=== PATIENT | female | born 1985 | race Caucasian/White ===

== ENCOUNTER 2018-12-23 14:24 | Emergency (ER) | payer OTHER ==
[~2018-12-23] VITALS: Ht 165.1 cm; Wt 51.3 kg
[2018-12-23 14:59] LABS: BASOPHILS ABSOLUTE AUTO 0.02 K/mm3 (0.00-0.23); BASOPHILS PERCENT AUTO 0 % (0-2); EOSINOPHILS PERCENT AUTO 0 % (0-6); Hemoglobin 13.8 g/dL (11.5-16.0); IMMATURE GRAN ABSOLUTE AUTO 0.13 K/mm3 (0.00-0.10); IMMATURE GRAN PERCENT AUTO 1 % (0-1); LYMPHOCYTES ABSOLUTE AUTO 1.88 K/mm3 (0.84-5.20); LYMPHOCYTES PERCENT AUTO 11 % (21-46); MONOCYTES ABSOLUTE AUTO 1.63 K/mm3 (0.16-1.47); MONOCYTES PERCENT AUTO 9 % (4-13); Mean Corpuscular HGB 32.3 pg (26.0-34.0); Mean Corpuscular HGB Conc 34.5 g/dL (31.5-36.5); Mean Corpuscular Volume 94 fL (80-100); Mean Platelet Volume 10.5 fL (9.1-12.4); NEUTROPHILS ABSOLUTE AUTO 14.09 K/mm3 (1.96-9.15); NEUTROPHILS PERCENT AUTO 79 % (41-73); Platelet Count 195 K/mm3 (150-400); RDW Coefficient Variation 12.3 % (11.7-14.2); RDW Standard Deviation 42.6 fL (35.1-46.3); Red Blood Cell Count 4.27 M/mm3 (3.80-5.20); White Blood Cell Count 17.75 K/mm3 (4.00-11.30)
[2018-12-23 15:20] LABS: Alanine Aminotransfer (ALT/SGP 31 U/L (12-78); Albumin, Blood 3.8 g/dL (3.4-5.0); Alk Phos 45 U/L (50-136); Anion Gap 5 mmol/L (6-16); Aspartate Aminotrans (AST/SGOT 25 U/L (12-37); Bilirubin, Total 1.6 mg/dL (0.1-1.0); Blood Urea Nitrogen 10 mg/dL (8-24); CO2, Blood 26 mmol/L (21-32); Calcium, Blood 8.7 mg/dL (8.5-10.1); Chloride, Blood 108 mmol/L (98-108); Creatinine, Blood 0.63 mg/dL (0.40-1.00); Globulin, Blood 3.9 g/dL (2.2-4.0); Glomerular Filtration Rate >60 (60-); Glucose, Blood 103 mg/dL (70-99); Potassium, Blood 3.6 mmol/L (3.5-5.5); Sodium, Blood 139 mmol/L (136-145); Total Protein, Blood 7.7 g/dL (6.4-8.2)
[2018-12-23 15:51] LABS: Source, Urine Clean Catch
[2018-12-23 16:02] LABS: Bilirubin, Urine Neg (Neg); Blood, Urine Neg (Neg); Glucose Qualitative, Urine Neg (Neg); Ketones, Urine 1+ (Neg); Leukocyte Esterase, Urine 1+ (Neg); Nitrite, Urine Neg (Neg); Protein, Urine Neg (Neg); Urobilinogen, Urine NORM (Normal)
[2018-12-23 16:15] LABS: Appearance, Urine Hazy (Clear); Color, Urine Yellow (P-Yellow)
[2018-12-23 16:16] LABS: Bacteria Few /hpf; Red Blood Cells, Urine 0-2 /hpf (0-2); Squamous Epithelial Cells Few /hpf (Few)
[2018-12-23] MEDS ORDERED: Zithromax250 MG PO (18:05)
[2018-12-23] MEDS ORDERED: BENZ100A PO (18:05)
== END 2018-12-23 18:20 | disposition home or self-care (01) ==
LOC: ER 14:24
PROVIDERS: Physician Assistant
DX: J18.9 Pneumonia, unspecified organism (principal)
CPT/HCPCS: 71046; 80053; 81001; 85025; 87086; 99283-25; A9270

== ENCOUNTER 2020-07-23 08:32 | Day surgery (SDC) | payer BC, OTHER ==
[~2020-07-23] VITALS: Ht 167.6 cm; Wt 53.7 kg
[~2020-07-23 08:32] MED LIST: BENZ100A PO; Zithromax250 MG PO
--- NOTE | 2020-07-23 09:57 | NUR ---
07/23/20 0957 Jenniffer Beck LATE ENTRY: PT ARRIVES IN PREOP AND VS ARE DONE IT IS NOTED THAT HR IS IRREGULAR. 3-LEAD IS PREFORMED AND REPORTED TO DR CADENA. DR CADENA ORDERS 12 LEAD AND THAT IS DONE, GIVEN TO DR CADENA, NO FURTHER ORDERS.
== END 2020-07-23 11:41 | disposition home or self-care (01) ==
LOC: ORSCSDS 08:32
PROVIDERS: Obstetrics & Gynecology
PROC: 0UBC7ZX Excision of Cervix, Via Natural or Artificial Opening, Diagnostic (ICD-10-PCS; principal; 2020-07-23 09:45)
DX: D06.0 Carcinoma in situ of endocervix (principal); F17.210 Nicotine dependence, cigarettes, uncomplicated
CPT/HCPCS: 93005; 93010; A9270; J0171; J0690; J1100; J1885; J2250; J2405; J2704; J2765; J3010; J7120

== ENCOUNTER 2020-09-10 09:19 | Day surgery (SDC) | payer BC, OTHER ==
[~2020-09-10] VITALS: Ht 167.6 cm; Wt 54.1 kg
[~2020-09-10 09:19] MED LIST changes: +IBU800 M1 PO
--- NOTE | 2020-09-10 12:39 | NUR ---
09/10/20 1239 Brandon Brian 0.15ML OF EPI 1MG/ML ADDED TO 30ML OF BUPIVICAINE 0.5% TO CREATE A LOCAL OF BUPIVICAINE 0.5% WITH EPI 1:200,000.
== END 2020-09-10 13:29 | disposition home or self-care (01) ==
LOC: ORSCSDS 09:19
PROVIDERS: Obstetrics & Gynecology
PROC: 0UBC7ZX Excision of Cervix, Via Natural or Artificial Opening, Diagnostic (ICD-10-PCS; principal; 2020-09-10 10:30)
DX: D06.0 Carcinoma in situ of endocervix (principal); F17.210 Nicotine dependence, cigarettes, uncomplicated
CPT/HCPCS: 88305; J0171; J0690; J1100; J1885; J2250; J2405; J2704; J3010; J7120

== ENCOUNTER 2020-09-23 15:34 | Emergency (ER) | payer BC, OTHER ==
[~2020-09-23] VITALS: Ht 167.6 cm; Wt 53.5 kg
[2020-09-23 16:10] LABS: BASOPHILS ABSOLUTE AUTO 0.02 K/mm3 (0.00-0.23); BASOPHILS PERCENT AUTO 0 % (0-2); EOSINOPHILS ABSOLUTE AUTO 0.01 K/mm3 (0.00-0.68); EOSINOPHILS PERCENT AUTO 0 % (0-6); Hematocrit 39.6 % (33.0-51.0); Hemoglobin 13.3 g/dL (11.5-16.0); IMMATURE GRAN ABSOLUTE AUTO 0.03 K/mm3 (0.00-0.10); IMMATURE GRAN PERCENT AUTO 0 % (0-1); LYMPHOCYTES ABSOLUTE AUTO 2.28 K/mm3 (0.84-5.20); LYMPHOCYTES PERCENT AUTO 25 % (21-46); MONOCYTES ABSOLUTE AUTO 0.51 K/mm3 (0.16-1.47); MONOCYTES PERCENT AUTO 6 % (4-13); Mean Corpuscular HGB 32.5 pg (26.0-34.0); Mean Corpuscular HGB Conc 33.6 g/dL (31.5-36.5); Mean Corpuscular Volume 97 fL (80-100); Mean Platelet Volume 10.8 fL (9.1-12.4); NEUTROPHILS ABSOLUTE AUTO 6.47 K/mm3 (1.96-9.15); NEUTROPHILS PERCENT AUTO 69 % (41-73); Platelet Count 204 K/mm3 (150-400); RDW Coefficient Variation 11.6 % (11.7-14.2); RDW Standard Deviation 41.5 fL (35.1-46.3); Red Blood Cell Count 4.09 M/mm3 (3.80-5.20); White Blood Cell Count 9.32 K/mm3 (4.00-11.30)
[2020-09-23 16:20] LABS: Alanine Aminotransfer (ALT/SGP 17 U/L (12-78); Albumin, Blood 3.6 g/dL (3.4-5.0); Alk Phos 51 U/L (50-136); Anion Gap 8 mmol/L (6-16); Aspartate Aminotrans (AST/SGOT 15 U/L (12-37); Bilirubin, Total 0.7 mg/dL (0.1-1.0); Blood Urea Nitrogen 14 mg/dL (8-24); CO2, Blood 26 mmol/L (21-32); Calcium, Blood 8.5 mg/dL (8.5-10.1); Chloride, Blood 106 mmol/L (98-108); Creatinine, Blood 0.52 mg/dL (0.40-1.00); Globulin, Blood 3.5 g/dL (2.2-4.0); Glomerular Filtration Rate >60 (60-); Glucose, Blood 98 mg/dL (70-99); Potassium, Blood 3.3 mmol/L (3.5-5.5); Sodium, Blood 140 mmol/L (136-145); Total Protein, Blood 7.1 g/dL (6.4-8.2)
[2020-09-23 18:55] LABS: Source, Urine Clean Catch
[2020-09-23 18:57] LABS: Appearance, Urine Clear (Clear); Bilirubin, Urine Neg (Neg); Blood, Urine 5+ (Neg); Color, Urine Yellow (P-Yellow); Glucose Qualitative, Urine Neg (Neg); Ketones, Urine Neg (Neg); Leukocyte Esterase, Urine 3+ (Neg); Nitrite, Urine Neg (Neg); Protein, Urine Neg (Neg); Urobilinogen, Urine NORM (Normal)
[2020-09-23 19:56] LABS: White Blood Cells, Urine 25-50 /hpf (0-5)
[2020-09-23 19:57] LABS: Bacteria Rare /hpf; Squamous Epithelial Cells Many /hpf (Few)
[2020-09-23] MEDS ORDERED: CEFP200 PO (20:10)
[2020-09-23] MEDS ORDERED: Pyridium200 MG PO (20:10)
== END 2020-09-23 20:20 | disposition home or self-care (01) ==
LOC: ER 15:34
PROVIDERS: Emergency Medicine; Physician Assistant
DX: G89.18 Other acute postprocedural pain (principal); R10.30 Lower abdominal pain, unspecified; F17.200 Nicotine dependence, unspecified, uncomplicated
CPT/HCPCS: 36415; 80053; 81001; 84703; 85025; 87077; 87086; 87186; 99283

== ENCOUNTER 2022-01-19 12:59 | Emergency (ER) | payer OTHER ==
[~2022-01-19] VITALS: Ht 165.1 cm; Wt 54.4 kg
[~2022-01-19 12:59] MED LIST changes: +CEFP200 PO; +Pyridium200 MG PO
== END 2022-01-19 14:56 | disposition home or self-care (01) ==
LOC: ER 12:59
DX: S39.012A Strain of muscle, fascia and tendon of lower back, initial encounter (principal); S33.5XXA Sprain of ligaments of lumbar spine, initial encounter; F17.200 Nicotine dependence, unspecified, uncomplicated; X50.0XXA Overexertion from strenuous movement or load, initial encounter; Y99.0 Civilian activity done for income or pay
CPT/HCPCS: 96372; 99283; A9270; J1885

== ENCOUNTER 2023-07-08 13:33 | Emergency (ER) | payer OTHER ==
[~2023-07-08] VITALS: Ht 165.1 cm; Wt 76.2 kg
[~2023-07-08 13:33] MED LIST changes: +CEPH500 PO
[2023-07-08 14:09] LABS: BASOPHILS ABSOLUTE AUTO 0.03 K/mm3 (0.00-0.23); BASOPHILS PERCENT AUTO 0 % (0-2); EOSINOPHILS ABSOLUTE AUTO 0.04 K/mm3 (0.00-0.68); EOSINOPHILS PERCENT AUTO 0 % (0-6); Hematocrit 33.6 % (33.0-51.0); Hemoglobin 11.6 g/dL (11.5-16.0); IMMATURE GRAN ABSOLUTE AUTO 0.22 K/mm3 (0.00-0.10); IMMATURE GRAN PERCENT AUTO 2 % (0-1); LYMPHOCYTES ABSOLUTE AUTO 1.62 K/mm3 (0.84-5.20); LYMPHOCYTES PERCENT AUTO 15 % (21-46); MONOCYTES ABSOLUTE AUTO 0.78 K/mm3 (0.16-1.47); MONOCYTES PERCENT AUTO 7 % (4-13); Mean Corpuscular HGB Conc 34.5 g/dL (31.5-36.5); Mean Corpuscular Volume 93 fL (80-100); Mean Platelet Volume 10.3 fL (9.1-12.4); NEUTROPHILS ABSOLUTE AUTO 8.06 K/mm3 (1.96-9.15); NEUTROPHILS PERCENT AUTO 75 % (41-73); Platelet Count 261 K/mm3 (150-400); RDW Standard Deviation 47.2 fL (35.1-46.3); Red Blood Cell Count 3.62 M/mm3 (3.80-5.20); White Blood Cell Count 10.75 K/mm3 (4.00-11.30)
[2023-07-08 14:16] LABS: Source, Urine Clean Catch
[2023-07-08 14:19] LABS: Appearance, Urine Clear (Clear); Bilirubin, Urine Neg (Neg); Blood, Urine Neg (Neg); Color, Urine Yellow (P-Yellow); Glucose Qualitative, Urine Neg (Neg); Ketones, Urine Neg (Neg); Leukocyte Esterase, Urine Neg (Neg); Nitrite, Urine Neg (Neg); Protein, Urine Neg (Neg); Urobilinogen, Urine NORM (Normal)
[2023-07-08 14:31] LABS: Alanine Aminotransfer (ALT/SGP 30 U/L (12-78); Albumin, Blood 2.7 g/dL (3.4-5.0); Albumin/Globulin Ratio 0.7 (0.8-1.8); Alk Phos 60 U/L (50-136); Anion Gap 10 mmol/L (3-11); Aspartate Aminotrans (AST/SGOT 27 U/L (12-37); Bilirubin, Direct <0.1 mg/dL (0.0-0.3); Bilirubin, Indirect Unable to Calculate mg/dL (0.1-0.7); Bilirubin, Total 0.4 mg/dL (0.1-1.0); Blood Urea Nitrogen 6 mg/dL (8-24); Bun/Creatinine Ratio 14.9 (12.0-20.0); CO2, Blood 21 mmol/L (21-32); Chloride, Blood 110 mmol/L (98-108); Globulin, Blood 3.9 g/dL (2.2-4.0); Glomerular Filtration Rate 132 (60-); Glucose, Blood 113 mg/dL (70-99); Potassium, Blood 3.4 mmol/L (3.5-5.5); Sodium, Blood 138 mmol/L (136-145); Total Protein, Blood 6.6 g/dL (6.4-8.2)
[2023-07-08] MEDS ORDERED: Aspir 8181 MG PO (14:39)
[2023-07-08] MEDS ORDERED: PRENATAL TABLE1 EAC2 PO (14:39)
[2023-07-08 15:39] VITALS: BP 105/66
== END 2023-07-08 15:40 | disposition home or self-care (01) ==
LOC: ER 13:33
PROVIDERS: Physician Assistant
DX: O99.891 Other specified diseases and conditions complicating pregnancy (principal); R10.9 Unspecified abdominal pain; R51.9 Headache, unspecified; Z3A.28 28 weeks gestation of pregnancy
CPT/HCPCS: 80053; 81003; 82248; 85025; 99284

== ENCOUNTER 2023-10-01 06:53 | Inpatient (IN) | payer OTHER ==
[~2023-10-01] VITALS: Ht 165.1 cm; Wt 83.2 kg
[2023-10-01] VITALS (41 sets, daily range): BP systolic 91–144; BP diastolic 48–81
[~2023-10-01 06:53] MED LIST changes: +Aspir 8181 MG PO; +PRENATAL TABLE1 EAC2 PO
[2023-10-01] MEDS ORDERED: Oxytocin 10 Unit / ML Vial IM SCH (07:25)
[2023-10-01] MEDS ORDERED: Misoprostol 200 MCG Tab PR SCH (07:25)
[2023-10-01] MEDS ORDERED: OXYTOCIN/RINGER'S LACTATE 500 ML IV SCH ×2 (07:25→23:45)
[2023-10-01] MEDS ORDERED: FentaNYL 2mcg/ml-Bup 0.1% Epd 250 ML EPI PRN (07:25)
[2023-10-01] MEDS ORDERED: Lactated Ringer's 1,000 ML IV PRN (07:25)
[2023-10-01] MEDS ORDERED: Bupivacaine HCl 2.5 MG/ML 10ML P/F Injection XX SCH (07:25)
[2023-10-01] MEDS ORDERED: Lactated Ringer's 1,000 ML IV SCH ×4 (07:25→23:55)
[2023-10-01] MEDS ORDERED: Lidocaine HCl 1% 30 ML SDV XX SCH (07:25)
[2023-10-01] MEDS ORDERED: Bupivacaine 0.5% HCl 5 MG/ML 30MLVIAL XX SCH (07:25)
[2023-10-01] MEDS ORDERED: Castor Oil 59.146 ML BTL TOP SCH (07:25)
[2023-10-01] MEDS ORDERED: Methylergonovine Maleate 0.2MG / ML 1ML Amp IM SCH (07:25)
[2023-10-01] MEDS ORDERED: ePHEDrine Sulfate 50 MG/ML 1ML Injection XX PRN (07:25)
[2023-10-01 07:31] LABS: BASOPHILS ABSOLUTE AUTO 0.02 K/mm3 (0.00-0.23); BASOPHILS PERCENT AUTO 0 % (0-2); EOSINOPHILS ABSOLUTE AUTO 0.07 K/mm3 (0.00-0.68); EOSINOPHILS PERCENT AUTO 1 % (0-6); Hematocrit 34.4 % (33.0-51.0); Hemoglobin 11.5 g/dL (11.5-16.0); IMMATURE GRAN ABSOLUTE AUTO 0.07 K/mm3 (0.00-0.10); IMMATURE GRAN PERCENT AUTO 1 % (0-1); LYMPHOCYTES ABSOLUTE AUTO 1.65 K/mm3 (0.84-5.20); LYMPHOCYTES PERCENT AUTO 20 % (21-46); MONOCYTES ABSOLUTE AUTO 0.64 K/mm3 (0.16-1.47); MONOCYTES PERCENT AUTO 8 % (4-13); Mean Corpuscular HGB 28.7 pg (26.0-34.0); Mean Corpuscular HGB Conc 33.4 g/dL (31.5-36.5); Mean Corpuscular Volume 86 fL (80-100); Mean Platelet Volume 10.6 fL (9.1-12.4); NEUTROPHILS ABSOLUTE AUTO 5.63 K/mm3 (1.96-9.15); NEUTROPHILS PERCENT AUTO 70 % (41-73); Platelet Count 252 K/mm3 (150-400); RDW Coefficient Variation 13.5 % (11.7-14.2); RDW Standard Deviation 42.5 fL (35.1-46.3); Red Blood Cell Count 4.01 M/mm3 (3.80-5.20); White Blood Cell Count 8.08 K/mm3 (4.00-11.30)
[2023-10-01] MEDS ORDERED: Ondansetron HCl 2 MG / ML 2ML Vial IV PRN ×3 (09:15→23:50)
[2023-10-01] MEDS ORDERED: Calcium Carbonate 500 MG Tab Chew PO PRN (09:15)
[2023-10-01] MEDS ORDERED: FentaNYL Citrate 50 MCG/ML 2 ML Injection IV PRN ×4 (09:15→22:30)
--- NOTE | 2023-10-01 09:16 | NUR ---
PROVIDER NOTIFIED OF PAST SUICIDE PLAN 14 YEARS AGO, ORDER RECEIVED MTO D/C 1:1 SUICIDE PRECAUTIONS.
[2023-10-01] MEDS ORDERED: ePHEDrine Sulfate 50 MG/ML 1ML Injection IV ONE (15:45)
[2023-10-01] MEDS ORDERED: Citric Acid/Sodium Citrate 30 ML BTL PO ONE (21:40)
[2023-10-01] MEDS ORDERED: Metoclopramide HCl 5MG / ML 2ML Vial IV ONE (21:40)
[2023-10-01] MEDS ORDERED: CeFAZolin Sodium 2,000 MG in NS 100 ML IV SCH (21:40)
[2023-10-01] MEDS ORDERED: Azithromycin 500 MG in NS 250 ML IV SCH (21:45)
[2023-10-01 21:55] LABS: Adenovirus Not Detected (NOT DETECT); Bordetella pertussis Not Detected (NOT DETECT); Chlamydophila pneumoniae Not Detected (NOT DETECT); Coronavirus 229E Not Detected (NOT DETECT); Coronavirus HKU1 Not Detected (NOT DETECT); Coronavirus NL63 Not Detected (NOT DETECT); Coronavirus OC43 Not Detected (NOT DETECT); Human Metapneumovirus Not Detected (NOT DETECT); Human Rhinovirus/Enterovirus Not Detected (NOT DETECT); Influenza A/2009-H1 Not Detected (NOT DETECT); Influenza A/H1 Not Detected (NOT DETECT); Influenza A/H3 Not Detected (NOT DETECT); Influenza B Not Detected (NOT DETECT); Mycoplasma pneumoniae Not Detected (NOT DETECT); Parainfluenza Virus 1 Not Detected (NOT DETECT); Parainfluenza Virus 2 Not Detected (NOT DETECT); Parainfluenza Virus 3 Not Detected (NOT DETECT); Parainfluenza Virus 4 Not Detected (NOT DETECT); Respiratory Syncytial Virus Not Detected (NOT DETECT); SARS-Cov-2 (COVID-19), BioFire Not Detected (NOT DETECT)
[2023-10-01] MEDS ORDERED: Lidocaine HCl 2% 10 ML SDA ONE ×2 (22:01→22:47)
[2023-10-01] MEDS ORDERED: ePHEDrine Sulfate 50 MG/ML 1ML Injection ONE (22:04)
[2023-10-01] MEDS ORDERED: FentaNYL Citrate 50 MCG/ML 2 ML Injection ONE (22:08)
[2023-10-01] MEDS ORDERED: SuccINYLCHOLINE Chloride 100 MG/5 ML 5MLSYR ONE (22:43)
[2023-10-01] MEDS ORDERED: Phenylephrine HCl 100 MCG/ML-NS 10MLSYR (1MG/10ML) ONE (23:01)
[2023-10-01 23:10] LABS: PO2 Cord - Arterial 19.8 mmHg (16-20); pH Cord - Arterial 7.27 (7.28-7.35)
[2023-10-01 23:12] LABS: PCO2 Cord - Venous 40.8 mmHg (40-50); PO2 Cord - Venous 22.8 mmHg (28-32); pH Umbilical Cord - Venous 7.35 (7.26-7.35)
[2023-10-01] MEDS ORDERED: Midazolam HCl 1MG / ML 2ML Vial ONE (23:12)
[2023-10-01] MEDS ORDERED: Ketamine HCl 100 MG / ML 5ML Vial ONE (23:13)
[2023-10-01] MEDS ORDERED: propofoL 20 ML IV ONE (23:15)
[2023-10-01] MEDS ORDERED: Dexamethasone Sod Phos 10 MG/ML 1ML VIAL ONE (23:18)
[2023-10-01] MEDS ORDERED: Ondansetron HCl 2 MG / ML 2ML Vial ONE (23:18)
[2023-10-01] MEDS ORDERED: Bupivacaine 0.5% HCl 5 MG/ML 30MLVIAL ONE (23:24)
[2023-10-01] MEDS ORDERED: Promethazine HCl 25 MG Supp PR PRN (23:45)
[2023-10-01] MEDS ORDERED: Morphine Sulfate 4 MG/1 ML Injection IV PRN (23:45)
[2023-10-01] MEDS ORDERED: Misoprostol 200 MCG Tab PR PRN (23:45)
[2023-10-01] MEDS ORDERED: Lanolin Cream TOP PRN (23:45)
[2023-10-01] MEDS ORDERED: OxyCODONE 5 mg/Acetamin 325 mg TABLET PO PRN (23:50)
[2023-10-01] MEDS ORDERED: Promethazine HCl 25 MG Tab PO PRN (23:50)
[2023-10-01] MEDS ORDERED: Acetaminophen 500 MG Tab PO PRN (23:50)
[2023-10-01] MEDS ORDERED: Methylergonovine Maleate 0.2MG / ML 1ML Amp IM PRN (23:55)
[2023-10-01] MEDS ORDERED: Promethazine HCl 12.5 MG Supp PR PRN (23:55)
[2023-10-01] MEDS ORDERED: Magnesium Hydroxide Conc 10 ML UDC PO PRN (23:55)
[2023-10-01] MEDS ORDERED: Simethicone 80 MG Chew PO PRN (23:55)
[2023-10-02] VITALS (18 sets, daily range): BP systolic 101–126; BP diastolic 50–92
[2023-10-02] MEDS ORDERED: Ketorolac Tromethamine 30mg Vial IV SCH
[2023-10-02] MEDS ORDERED: Tranexamic Acid 100 ML IV PRN (00:05)
[2023-10-02] MEDS ORDERED: CeFAZolin Sodium 2,000 MG in NS 100 ML IV SCH (05:00)
[2023-10-02 08:47] LABS: BASOPHILS ABSOLUTE AUTO 0.02 K/mm3 (0.00-0.23); BASOPHILS PERCENT AUTO 0 % (0-2); EOSINOPHILS PERCENT AUTO 0 % (0-6); Hematocrit 27.7 % (33.0-51.0); Hemoglobin 9.6 g/dL (11.5-16.0); IMMATURE GRAN ABSOLUTE AUTO 0.09 K/mm3 (0.00-0.10); IMMATURE GRAN PERCENT AUTO 1 % (0-1); LYMPHOCYTES ABSOLUTE AUTO 1.26 K/mm3 (0.84-5.20); LYMPHOCYTES PERCENT AUTO 9 % (21-46); MONOCYTES ABSOLUTE AUTO 0.67 K/mm3 (0.16-1.47); MONOCYTES PERCENT AUTO 5 % (4-13); Mean Corpuscular HGB 29.8 pg (26.0-34.0); Mean Corpuscular HGB Conc 34.7 g/dL (31.5-36.5); Mean Corpuscular Volume 86 fL (80-100); Mean Platelet Volume 10.7 fL (9.1-12.4); NEUTROPHILS ABSOLUTE AUTO 12.56 K/mm3 (1.96-9.15); NEUTROPHILS PERCENT AUTO 86 % (41-73); Platelet Count 225 K/mm3 (150-400); RDW Coefficient Variation 13.6 % (11.7-14.2); RDW Standard Deviation 42.5 fL (35.1-46.3); Red Blood Cell Count 3.22 M/mm3 (3.80-5.20)
[2023-10-02] MEDS ORDERED: Docusate Sodium 100 MG Cap PO SCH (09:00)
[2023-10-02] MEDS ORDERED: Prenatal Vit/FE Fumarate/FA 1 Tab PO SCH (09:00)
[2023-10-02] MEDS ORDERED: Aspirin 81 MG TabEC PO SCH (09:00)
[2023-10-02] MEDS ORDERED: Ibuprofen 400 MG Tab PO SCH (16:00)
[2023-10-02] MEDS ORDERED: Sod Ferric Gluc Complx/Sucrose 125 MG in NS 100 ML IV ONE (18:25)
--- NOTE | 2023-10-03 00:28 | NUR ---
ASSUMED CARE OF PT AT 1900. REPORT RECEIVED FROM REMIGIO SOL. PT HAS BEEN AMBULATING IN ROOM AND MANAGING PAIN WITH PERCOCET AND TORADOL SO FAR. SHE REPORTS PASSING FLATUS, BUT NO BM. C/O VERY SORE NIPPLES AND IS ASKING ABOUT GIVING A BOTTLE FOR THE NEXT FEED DUE TO PAIN. I DISCUSSED COMMON CAUSES FOR SORE NIPPLES AND SHE WILL CALL FOR HELP WITH LATCH. ALSO TRIED SUPPLEMENTING WITH DONOR MILK AT THE BREAST WITH SHIELD AND FEEDING SYRINGE. PT STATES SHE FELT MORE CONFIDENT AND LESS PAINFUL WITH THAT METHOD AND BABY SEEMED SATISFIED. SHE IS ON THE LIST FOR AN LC IN THE MORNING. ALSO DISCUSSED HAND EXPRESSING COLOSTRUM AND DIPPING IT INTO BABY'S MOUTH.VSS. INCISION WITH DIVINA IN PLACE AND DRAINAGE MARKED WITH MARKER IS UNCHANGED.
[2023-10-03 04:33] VITALS: BP 106/71
[2023-10-03 07:31] VITALS: BP 106/60
[2023-10-03] MEDS ORDERED: Percocet 5-3251 EACH PO (09:20)
[2023-10-03] MEDS ORDERED: IBUP800 PO (09:20)
[2023-10-03] MEDS ORDERED: COLACE100 MG PO (09:21)
[2023-10-03 12:21] VITALS: BP 110/59
--- NOTE | 2023-10-03 14:36 | NUR ---
DISCHARGE- DISCHARGE HOME STABLE. CARING FOR SELF AND BABY INDEPENDANTLY. VERBALIZES UNDERSTANDING OF DC INSTRUCTIONS AND FOLLOW UP APPOINTMENTS. VSS. LOCHIA SCANT. DIVINA DRESSING ON. NO QUESTIONS OR CONCERNS.
== END 2023-10-03 14:25 | disposition home or self-care (01) | DRG 787 ==
LOC: OBS 06:53 → BC 07:01 → OBS 07:01 → BC 22:56
PROVIDERS: Obstetrics & Gynecology; ADMIT Advanced Practice Midwife
PROC: 10H07YZ Insertion of Other Device into Products of Conception, Via Natural or Artificial Opening (ICD-10-PCS; 2023-10-01)
PROC: 10D00Z1 Extraction of Products of Conception, Low, Open Approach (ICD-10-PCS; principal; 2023-10-01 21:45)
DX: O24.420 Gestational diabetes mellitus in childbirth, diet controlled (principal); D62 Acute posthemorrhagic anemia; O62.1 Secondary uterine inertia; O48.0 Post-term pregnancy; Z3A.40 40 weeks gestation of pregnancy; Z37.0 Single live birth; O40.3XX0 Polyhydramnios, third trimester, not applicable or unspecified; O76 Abnormality in fetal heart rate and rhythm complicating labor and delivery; Z98.890 Other specified postprocedural states; Z79.82 Long term (current) use of aspirin; Z79.899 Other long term (current) drug therapy; O99.214 Obesity complicating childbirth; O90.81 Anemia of the puerperium
CPT/HCPCS: 0202U; 36415; 51702; 82803; 82947; 85025; 86850; 86900; 86901; 86923; A9270; J0330; J0456; J0690; J1100; J1885; J2001; J2250; J2371; J2405; J2590; J2704; J2765; J2916; J3010; J7050; J7120